=== PATIENT | female | born 2000 | race Caucasian/White ===

== ENCOUNTER 2021-10-05 11:26 | Emergency (ER) | payer OTHER ==
[~2021-10-05] VITALS: Ht 157.5 cm; Wt 59.0 kg
[2021-10-05] MEDS ORDERED: SYNTHROID75 MC1 PO (11:45)
[2021-10-05 12:34] VITALS: BP 123/67
== END 2021-10-05 12:35 | disposition home or self-care (01) ==
LOC: M.ERS 11:26
DX: S93.402A Sprain of unspecified ligament of left ankle, initial encounter (principal); E03.9 Hypothyroidism, unspecified; Z79.899 Other long term (current) drug therapy; Y93.39 Activity, other involving climbing, rappelling and jumping off; Y93.41 Activity, dancing; Y92.89 Other specified places as the place of occurrence of the external cause; Y99.8 Other external cause status